=== PATIENT | female | born 1960 | race Caucasian/White ===

== ENCOUNTER 2017-11-05 16:49 | Emergency (ER) | END 2017-11-05 19:50 | disposition home or self-care (01) ==

== ENCOUNTER 2018-05-16 12:19 | Emergency (ER) | payer SELFPAY ==
[~2018-05-16] VITALS: Ht 157.5 cm; Wt 61.7 kg
[~2018-05-16 12:19] MED LIST: ACET500C5 PO; HYDR-842 PO; ONDA4TAB14 PO
[2018-05-16 12:29] VITALS: BP 120/74; PULSE 74; RESP 20; Ht 157.5 cm; Wt 61.7 kg
[2018-05-16] MEDS ORDERED: FAMOTIDINE 20 MG INJ IV STA (13:43)
[2018-05-16] MEDS ORDERED: SOD CHLORIDE 0.9% 1,000 ML IV STA (13:43)
[2018-05-16] MEDS ORDERED: ONDANSETRON 4 MG INJ IV STA (13:43)
[2018-05-16] MEDS ORDERED: LIDOCAINE/MYLANTA 40 ML BTL PO STA (13:43)
--- NOTE | 2018-05-16 13:45 | ERD ---
ER Documentation Chief Complaint Chief Complaint mid abd pain, vag, urinary pain x 5 days denies n/v/diarrhea HPI 57-year-old female, with history of chronic gastritis, presents to the emergency department, complaining of 1 week with burning epigastric pain, associated with nausea. The patient also reports 5 days with urinary symptoms including dysuria, hesitancy and polyuria. She denies fevers, no chills, no back pain. ROS All systems reviewed and are negative except as per history of present illness. Medications Home Meds Active Scripts Tamsulosin Hcl* (Flomax*) 0.4 Mg Cap.er.24h, 0.4 MG PO BID for 5 Days, #10 CAP Prov:ULISES ÁLVAREZ MD 05/16/18 Ciprofloxacin Hcl* (Ciprofloxacin Hcl*) 250 Mg Tablet, 250 MG PO BID for 3 Days, #6 TAB Prov:ULISES ÁLVAREZ MD 05/16/18 Omeprazole* (Omeprazole*) 40 Mg Capsule.dr, 40 MG PO DAILY, #30 CAP Prov:ULISES ÁLVAREZ MD 05/16/18 Ranitidine Hcl* (Zantac*) 150 Mg Tablet, 150 MG PO BID PRN for EPIGASTRIC PAIN, #30 TAB Prov:ULISES ÁLVAREZ MD 05/16/18 Hydroxyzine Hcl* (Atarax*) 25 Mg Tab, 25 MG PO Q6H PRN for ANXIETY, #10 TAB Prov:CARLOS TAO MD 11/05/17 Ondansetron (Ondansetron Odt) 4 Mg Tab.rapdis, 4 MG PO Q6H PRN for NAUSEA AND/OR VOMITING, #10 TAB Prov:SOREN NEWTON PA-C 10/20/17 Acetaminophen* (Tylophen*) 500 Mg Capsule, 1 CAP PO Q6H PRN for PAIN AND OR ELEVATED TEMP, #20 CAP Prov:SOREN NEWTON PA-C 10/20/17 Allergies Allergies: Coded Allergies: Penicillins (Verified Allergy, Unknown, 10/20/17) PMhx/Soc History of Surgery: No Anesthesia Reaction: No Hx Neurological Disorder: No Hx Respiratory Disorders: No Hx Cardiac Disorders: Yes (HTN(not on med)) Hx Psychiatric Problems: No Hx Miscellaneous Medical Probl: No Hx Alcohol Use: No Hx Substance Use: No Hx Tobacco Use: No Physical Exam Vitals Vital Signs Date Temp Pulse Resp B/P (MAP) Pulse Ox O2 O2 Flow FiO2 Time Delivery Rate 05/16/18 97.7 74 20 120/74 100 12:29 (89) Physical Exam Const: No acute distress Head: Atraumatic Eyes: Normal Conjunctiva ENT: Normal External Ears, Nose and Mouth. Neck: Full range of motion. No meningismus. Resp: Clear to auscultation bilaterally Cardio: Regular rate and rhythm, no murmurs Abd: Soft, non tender, non distended. Normal bowel sounds Skin: No petechiae or rashes Back: No midline or flank tenderness Ext: No cyanosis, or edema Neur: Awake and alert Psych: Normal Mood and Affect Result Diagram: 05/16/18 1350 05/16/18 1350 Results 24 hrs Laboratory Tests Test 05/16/18 13:50 White Blood Count 7.0 10^3/ul Red Blood Count 5.13 10^6/ul Hemoglobin 15.7 g/dl Hematocrit 47.5 % Mean Corpuscular Volume 92.6 fl Mean Corpuscular Hemoglobin 30.6 pg Mean Corpuscular Hemoglobin Concent 33.1 g/dl Red Cell Distribution Width 13.3 % Platelet Count 268 10^3/UL Mean Platelet Volume 9.9 fl Immature Granulocytes % 0.100 % Neutrophils % 46.9 % Lymphocytes % 39.7 % Monocytes % 7.4 % Eosinophils % 4.9 % Basophils % 1.0 % Nucleated Red Blood Cells % 0.0 /100WBC Immature Granulocytes # 0.010 10^3/ul Neutrophils # 3.3 10^3/ul Lymphocytes # 2.8 10^3/ul Monocytes # 0.5 10^3/ul Eosinophils # 0.3 10^3/ul Basophils # 0.1 10^3/ul Nucleated Red Blood Cells # 0.0 10^3/ul Urine Color YELLOW Urine Clarity SLIGHTLY CLOUDY Urine pH 5.0 Urine Specific [place] 1.019 Urine Ketones NEGATIVE mg/dL Urine Nitrite NEGATIVE mg/dL Urine Bilirubin NEGATIVE mg/dL Urine Urobilinogen NEGATIVE mg/dL Urine Leukocyte Esterase NEGATIVE Ania/ul Urine Microscopic RBC 1 /HPF Urine Microscopic WBC 1 /HPF Urine Squamous Epithelial Cells FEW /HPF Urine Hemoglobin NEGATIVE mg/dL Urine Glucose NEGATIVE mg/dL Urine Total Protein NEGATIVE mg/dl Sodium Level 144 mmol/L Potassium Level 4.4 mmol/L Chloride Level 106 mmol/L Carbon Dioxide Level 28 mmol/L Anion Gap 10 Blood Urea Nitrogen 20 mg/dl Creatinine 0.57 mg/dl Est Glomerular Filtrat Rate mL/min > 60 mL/min Glucose Level 101 mg/dl Calcium Level 9.8 mg/dl Total Bilirubin 0.5 mg/dl Direct Bilirubin 0.00 mg/dl Indirect Bilirubin 0.5 mg/dl Aspartate Amino Transf (AST/SGOT) 45 IU/L Alanine Aminotransferase (ALT/SGPT) 76 IU/L Alkaline Phosphatase 107 IU/L Total Protein 7.8 g/dl Albumin 4.7 g/dl Globulin 3.10 g/dl Albumin/Globulin Ratio 1.51 Lipase 118 U/L Current Medications Medications Dose Sig/Rosa Maria Start Time Status Last (Trade) Ordered Route PRN Stop Time Admin Dose Reason Admin Sodium 1,000 ml @ Q1H STAT 05/16/18 DC 05/16/18 Chloride 1,000 mls/hr IV 13:43 05/16/18 13:55 14:42 Ondansetron 4 mg ONCE STAT 05/16/18 DC 05/16/18 HCl (Zofran IV 13:43 05/16/18 13:55 Inj) 13:47 Famotidine 20 mg ONCE STAT 05/16/18 DC 05/16/18 (Pepcid Iv) IV 13:43 05/16/18 13:55 13:47 40 ml ONCE STAT 05/16/18 DC 05/16/18 Miscellaneous PO 13:43 05/16/18 13:55 Medication 13:47 (Gi Cocktail (2)) EKG read by me: Rate/Rhythm: Regular rate and rhythm at a rate of 60 Intervals: Normal No acute ST changes. No T wave inversion Impression: No evidence of acute ischemia or arrhythmia Procedures/MDM Vital signs stable. Differential diagnosis include but not limited to: Gas tritis, gastroenteritis, cholelithiasis, cholecystitis, kidney stones, irritable bowel syndrome, inflammatory bowel syndrome, malabsorption syndrome, food intolerance, medication side effect, pancreatitis, diverticulitis, bowel obstruction. Physical examination and clinical presentation consistent most likely with acute gastritis and acute cystitis, no suspicion for acute abdomen. During the ED course the patient remained stable, no new complaints. The patient received treatment with IV fluids and IV medications presenting overall improvement of the symptoms. Results and clinical impression discussed with the patient who agrees with management. The patient is stable to be treated outpatient and will be discharged home with a Rx for, some side effects of prescribed medications (headache, rash, nausea, vomiting, diarrhea, drowsiness, habituation, bleeding, hypertension, interactions with other medications) were reviewed. Follow up with the primary care provider in the next 48h is recommended. If symptoms persist, worsen or new symptoms develop, then patient should return to the ED immediately. Instructions explained and given directly by me to the patient with acknowledgment and demonstrated understanding. Disclaimer: Inadvertent spelling and grammatical errors are likely due to EHR/dictation software use and do not reflect on the overall quality of patient care. Also, please note that the electronic time recorded on this note does not necessarily reflect the actual time of the patient encounter. Departure Diagnosis: Primary Impression: GERD (gastroesophageal reflux disease) Additional Impression: Cystitis Condition: Stable Additional Instructions: Muchas bubba por [facility] para johnson servicio. Esperamos que en johnson visita a la zoila de emergencia johnson problema medico haya sido solucionado y que se sienta mucho mejor. Para estar seguros que johnson mejoria sigue en proceso, le pedimos el favor de hacer arslan harlan de seguimiento medico con johnson doctor primario en los proximos 2-4 morales. Lleve con usted estos documentos y las medicinas recetadas. Si woody sintomas empeoran, NO SE ESPERE, por favor regrese a zoila de emergencia INMEDIATAMENTE. En alison que usted no tenga un mdico de atencin primaria: Llame al mdico o clnica comunitaria de referencia que aparece abajo mari las horas de consultorio para hacer arslan harlan para que le vean. CLINICAS: [facility] [phone] [address] [facility] 394 [phone] [address] [facility] 656 [phone] [address] [facility] [phone] [address] [place] [id number] [phone] [facility]. [phone] ULISES RG MD May 16, 2018 13:45
[2018-05-16] MEDS ORDERED: OMEP40CA6 PO (14:33)
[2018-05-16] MEDS ORDERED: TAMS-14 PO (14:33)
[2018-05-16] MEDS ORDERED: CIPR-193 PO (14:33)
[2018-05-16] MEDS ORDERED: RANI150T35 PO (14:33)
== END 2018-05-16 14:47 | disposition home or self-care (01) ==
LOC: FTE 12:19
DX: K21.9 Gastro-esophageal reflux disease without esophagitis (principal); I10 Essential (primary) hypertension; N30.90 Cystitis, unspecified without hematuria
CPT/HCPCS: 36415; 80053; 81001; 83690; 85025; 96361; 96374; 96375; 99284; J2405; J7030; 81003

== ENCOUNTER 2018-06-13 22:29 | Emergency (ER) | payer SELFPAY ==
[~2018-06-13] VITALS: Ht 160 cm; Wt 63.0 kg
[~2018-06-13 22:29] MED LIST changes: +CIPR-193 PO; +OMEP40CA6 PO; +RANI150T35 PO; +TAMS-14 PO
[2018-06-13 22:32] VITALS: Ht 160 cm; Wt 63.0 kg
[2018-06-14] MEDS ORDERED: KETOROLAC 15 MG INJ IM STA (01:12)
[2018-06-14] MEDS ORDERED: LORAZEPAM 0.5 MG TAB PO ONE (01:30)
[2018-06-14] MEDS ORDERED: LORA-441 PO (02:01)
[2018-06-14] MEDS ORDERED: ACET-141 PO (02:01)
[2018-06-14] MEDS ORDERED: IBUP-1542 PO (02:01)
--- NOTE | 2018-06-14 02:04 | ERD ---
ER Documentation Chief Complaint Chief Complaint VITALE and neck pain x 3 days; denies n/v/injury/cough HPI 57-year-old female presents for headache and neck pain x3 days. She states that the headache is in the posterior part of her head, rated 8 out of 10, described as sharp, nonradiating. There is also associated neck pain. She also feels that she is anxious. She denies significant past medical history. She has had prior similar headaches in the past. She denies fevers or chills. Denies nausea vomiting or diarrhea. Denies chest pain or shortness of breath. No other modifying factors noted. No treatments tried at home. ROS All systems reviewed and are negative except as per history of present illness. Medications Home Meds Active Scripts Lorazepam* (Ativan*) 0.5 Mg Tablet, 0.5 MG PO Q8H PRN for ANXIETY, #10 TAB Prov:CARLOS FALL DO 06/14/18 Acetaminophen* (Acetaminophen*) 500 MG Extra Strength Tablet, 500 MG PO Q4H PRN for PAIN AND OR ELEVATED TEMP, #30 TAB Prov:CARLOS FALL DO 06/14/18 Ibuprofen* (Motrin*) 600 Mg Tab, 600 MG PO Q6H PRN for PAIN AND OR ELEVATED TEMP, #30 TAB Prov:CARLOS FALL DO 06/14/18 Tamsulosin Hcl* (Flomax*) 0.4 Mg Cap.er.24h, 0.4 MG PO BID for 5 Days, #10 CAP Prov:ULISES ÁLVAREZ MD 05/16/18 Ciprofloxacin Hcl* (Ciprofloxacin Hcl*) 250 Mg Tablet, 250 MG PO BID for 3 Days, #6 TAB Prov:ULISES ÁLVAREZ MD 05/16/18 Omeprazole* (Omeprazole*) 40 Mg Capsule.dr, 40 MG PO DAILY, #30 CAP Prov:ULISES ÁLVAREZ MD 05/16/18 Ranitidine Hcl* (Zantac*) 150 Mg Tablet, 150 MG PO BID PRN for EPIGASTRIC PAIN, #30 TAB Prov:ULISES ÁLVAREZ MD 05/16/18 Hydroxyzine Hcl* (Atarax*) 25 Mg Tab, 25 MG PO Q6H PRN for ANXIETY, #10 TAB Prov:CARLOS TAO MD 11/05/17 Ondansetron (Ondansetron Odt) 4 Mg Tab.rapdis, 4 MG PO Q6H PRN for NAUSEA AND/OR VOMITING, #10 TAB Prov:SOREN NEWTON PA-C 10/20/17 Acetaminophen* (Tylophen*) 500 Mg Capsule, 1 CAP PO Q6H PRN for PAIN AND OR ELEVATED TEMP, #20 CAP Prov:SOREN NEWTON PA-C 10/20/17 Allergies Allergies: Coded Allergies: Penicillins (Verified Allergy, Unknown, 10/20/17) PMhx/Soc History of Surgery: No Anesthesia Reaction: No Hx Neurological Disorder: No Hx Respiratory Disorders: No Hx Cardiac Disorders: Yes (HTN(not on med)) Hx Psychiatric Problems: No Hx Miscellaneous Medical Probl: Yes (GASTRIC ULCERS) Hx Alcohol Use: No Hx Substance Use: No Hx Tobacco Use: No Smoking Status: Never smoker FmHx Family History: No coronary disease Physical Exam Vitals Vital Signs Date Temp Pulse Resp B/P (MAP) Pulse Ox O2 O2 Flow FiO2 Time Delivery Rate 06/13/18 97.3 87 20 144/67 99 22:32 (92) Physical Exam Const: No acute distress Head: Atraumatic, no temporal area tenderness to palpation Eyes: Normal Conjunctiva, pupils equal, round, reactive to light bilaterally ENT: Normal External Ears, bilateral tympanic membrane intact without erythema or bulging noted, Nose and Mouth examination normal. No tonsillar swelling or exudate noted Neck: Full range of motion. No meningismus, no bruits noted Resp: Clear to auscultation bilaterally Cardio: Regular rate and rhythm, no murmurs, bilateral radial and dorsalis pedis pulses intact Skin: No petechiae or rashes Ext: No cyanosis, or edema, 5 out of 5 muscular bilateral upper and lower ex tremities Neur: Awake and alert, bilateral upper and lower extremity sensation intact Psych: Normal Mood and Affect Results 24 hrs Current Medications Medications Dose Sig/Rosa Maria Start Time Status Last (Trade) Ordered Route PRN Stop Time Admin Dose Reason Admin Ketorolac 15 mg ONCE STAT 06/14/18 DC 06/14/18 Tromethamine IM 01:12 06/14/18 01:27 (Toradol) 01:14 Lorazepam 0.5 mg ONCE ONCE 06/14/18 DC 06/14/18 (Ativan) PO 01:30 06/14/18 01:26 01:31 Procedures/MDM Medical Decision Making: Differential diagnosis includes but not limited to primary headache, subarachnoid hemorrhage, meningitis, temporal arteritis, glaucoma, hypertension, cerebral ischemia, carotid or vertebral arterial dissection, brain tumor. Patient appeared well on physical examination, nontoxic appearing. No history of fever. There is low suspicion for meningitis. Given no temporal area tenderness to palpation, low suspicion for temporal arteritis. Patient has no vision changes and pupils are reactive bilaterally, low suspicion for glaucoma. There is also no focal neurologic deficits to suggest a brain tumor. Patient has normal sensation and muscle strength, low suspicion for cerebral ischemia. Given headache is similar to prior headaches, patient possibly has a primary headache. Patient is also having some anxiety symptoms while in the ER. In the ER patient given Toradol and Ativan Symptoms improved with treatment. Patient given prescription for supportive medication(s) as well as Ativan low- dose short course. Patient advised to follow up with PCP in 1-2 days. Patient advised to return to ED for new or worsening symptoms. Patient stable on discharge from the ED. Disclaimer: Inadvertent spelling and grammatical errors are likely due to EHR/dictation software use and do not reflect on the overall quality of patient care. Also, please note that the electronic time recorded on this note does not necessarily reflect the actual time of the patient encounter. Departure Diagnosis: Primary Impression: Headache Headache type: unspecified Headache chronicity pattern: unspecified pattern Intractability: not intractable Qualified Codes: R51 - Headache Additional Impression: Anxiety Condition: Fair Patient Instructions: Self-Care for Headaches, Anxiety Reaction Referrals: [facility] YOU HAVE RECEIVED A MEDICAL SCREENING EXAM AND THE RESULTS INDICATE THAT YOU DO NOT HAVE A CONDITION THAT REQUIRES URGENT TREATMENT IN THE EMERGENCY DEPARTMENT. FURTHER EVALUATION AND TREATMENT OF YOUR CONDITION CAN WAIT UNTIL YOU ARE SEEN IN YOUR DOCTORS OFFICE WITHIN THE NEXT 1-2 DAYS. IT IS YOUR RESPONSIBILITY TO MAKE AN APPOINTMENT FOR FOLOW-UP CARE. IF YOU HAVE A PRIMARY DOCTOR --you should call your primary doctor and schedule an appointment IF YOU DO NOT HAVE A PRIMARY DOCTOR YOU CAN CALL OUR PHYSICIAN REFERRAL HOTLINE AT IF YOU CAN NOT AFFORD TO SEE A PHYSICIAN YOU CAN CHOSE FROM THE FOLLOWING [facility] [address] [facility] [address] [facility] [address] [facility] [address] [facility]. [facility] [address] [facility]. [facility] [address] Additional Instructions: Llame al doctor MAANA y torsten arslan ILANA PARA DENTRO DE 1-2 HERNANDEZ.Dgale a la secretaria que nosotros le instruimos hacer esta ilana.Avise o llame si johnson condicin se empeora antes de la ilana. Regresa aqui si peor o no mejor. CARLOS FALL DO June 14, 2018 02:04
[2018-06-14 02:21] VITALS: BP 135/62; PULSE 81; RESP 17
== END 2018-06-14 02:21 | disposition home or self-care (01) ==
LOC: FTE 22:29
DX: R51 Headache (principal); F41.9 Anxiety disorder, unspecified; I10 Essential (primary) hypertension
CPT/HCPCS: 96372; 99284; J1885

== ENCOUNTER 2018-07-14 22:41 | Emergency (ER) | payer SELFPAY ==
[~2018-07-14] VITALS: Ht 152.4 cm; Wt 63.2 kg
[~2018-07-14 22:41] MED LIST changes: +ACET-141 PO; +IBUP-1542 PO; +LORA-441 PO
[2018-07-14 23:01] VITALS: Ht 152.4 cm; Wt 63.2 kg
[2018-07-15] MEDS ORDERED: SOD CHLORIDE 0.9% 500 ML IV STA (02:38)
[2018-07-15] MEDS ORDERED: ONDANSETRON 4 MG INJ IV STA (02:38)
[2018-07-15] MEDS ORDERED: morphine 4 MG/ML VIAL IV STA (02:38)
--- NOTE | 2018-07-15 04:21 | ERD ---
ER Documentation Chief Complaint Chief Complaint Upper abd since this morning, c/o VITALE and neck pain HPI This very pleasant 57 female with abdominal pain this morning. She has a history of gastric ulcers his pain is mild to moderate intensity no exacerbating factors. Denies fevers or chills. Denies any other current complaints. Mild associated nausea but no vomiting. No fevers or chills. ROS All systems reviewed and are negative except as per history of present illness. Medications Home Meds Active Scripts Lorazepam* (Ativan*) 0.5 Mg Tablet, 0.5 MG PO Q8H PRN for ANXIETY, #10 TAB Prov:CARLOS FALL DO 06/14/18 Ibuprofen* (Motrin*) 600 Mg Tab, 600 MG PO Q6H PRN for PAIN AND OR ELEVATED TEMP, #30 TAB Prov:CARLOS FALL DO 06/14/18 Omeprazole* (Omeprazole*) 40 Mg Capsule.dr, 40 MG PO DAILY, #30 CAP Prov:ULISES ÁLVAREZ MD 05/16/18 Ondansetron (Ondansetron Odt) 4 Mg Tab.rapdis, 4 MG PO Q6H PRN for NAUSEA AND/OR VOMITING, #10 TAB Prov:SOREN NEWTON PA-C 10/20/17 Discontinued Scripts Acetaminophen* (Acetaminophen*) 500 MG Extra Strength Tablet, 500 MG PO Q4H PRN for PAIN AND OR ELEVATED TEMP, #30 TAB Prov:CARLOS FALL DO 06/14/18 Tamsulosin Hcl* (Flomax*) 0.4 Mg Cap.er.24h, 0.4 MG PO BID for 5 Days, #10 CAP Prov:ULISES ÁLVAREZ MD 05/16/18 Ciprofloxacin Hcl* (Ciprofloxacin Hcl*) 250 Mg Tablet, 250 MG PO BID for 3 Days, #6 TAB Prov:ULISES ÁLVAREZ MD 05/16/18 Ranitidine Hcl* (Zantac*) 150 Mg Tablet, 150 MG PO BID PRN for EPIGASTRIC PAIN, #30 TAB Prov:ULISES ÁLVAREZ MD 05/16/18 Hydroxyzine Hcl* (Atarax*) 25 Mg Tab, 25 MG PO Q6H PRN for ANXIETY, #10 TAB Prov:CARLOS TAO MD 11/05/17 Acetaminophen* (Tylophen*) 500 Mg Capsule, 1 CAP PO Q6H PRN for PAIN AND OR ELEVATED TEMP, #20 CAP Prov:SOREN NEWTON PA-C 10/20/17 Allergies Allergies: Coded Allergies: Penicillins (Unverified Allergy, Unknown, 07/15/18) PMhx/Soc Medical and Surgical Hx: pt denies Surgical Hx History of Surgery: No Anesthesia Reaction: No Hx Neurological Disorder: No Hx Respiratory Disorders: No Hx Cardiac Disorders: No Hx Psychiatric Problems: No Hx Miscellaneous Medical Probl: Yes (GASTRIC ULCER) Hx Alcohol Use: No Hx Substance Use: No Hx Tobacco Use: No Smoking Status: Never smoker Physical Exam Vitals Vital Signs Date Temp Pulse Resp B/P (MAP) Pulse Ox O2 O2 Flow FiO2 Time Delivery Rate 07/15/18 97.3 65 18 98/65 (76) 100 Room Air 03:10 07/14/18 96.2 78 16 144/88 96 23:01 (106) Physical Exam Const: No acute distress Head: Atraumatic Eyes: Normal Conjunctiva ENT: Normal External Ears, Nose and Mouth. Neck: Full range of motion. No meningismus. Resp: Clear to auscultation bilaterally Cardio: Regular rate and rhythm, no murmurs Abd: Soft, non tender, non distended. Normal bowel sounds Skin: No petechiae or rashes Back: No midline or flank tenderness Ext: No cyanosis, or edema Neur: Awake and alert Psych: Normal Mood and Affect Result Diagram: 07/15/18 0259 07/15/18 0259 Results 24 hrs Laboratory Tests Test 07/15/18 02:59 07/15/18 03:17 White Blood Count 7.9 10^3/ul Red Blood Count 4.75 10^6/ul Hemoglobin 14.5 g/dl Hematocrit 44.3 % Mean Corpuscular Volume 93.3 fl Mean Corpuscular Hemoglobin 30.5 pg Mean Corpuscular Hemoglobin Concent 32.7 g/dl Red Cell Distribution Width 13.2 % Platelet Count 259 10^3/UL Mean Platelet Volume 10.0 fl Immature Granulocytes % 0.100 % Neutrophils % 38.9 % Lymphocytes % 45.7 % Monocytes % 7.5 % Eosinophils % 6.9 % Basophils % 0.9 % Nucleated Red Blood Cells % 0.0 /100WBC Immature Granulocytes # 0.010 10^3/ul Neutrophils # 3.1 10^3/ul Lymphocytes # 3.6 10^3/ul Monocytes # 0.6 10^3/ul Eosinophils # 0.5 10^3/ul Basophils # 0.1 10^3/ul Nucleated Red Blood Cells # 0.0 10^3/ul Sodium Level 142 mmol/L Potassium Level 3.9 mmol/L Chloride Level 107 mmol/L Carbon Dioxide Level 29 mmol/L Anion Gap 6 Blood Urea Nitrogen 24 mg/dl Creatinine 0.67 mg/dl Est Glomerular Filtrat Rate mL/min > 60 mL/min Glucose Level 110 mg/dl Calcium Level 9.2 mg/dl Total Bilirubin 0.3 mg/dl Direct Bilirubin 0.00 mg/dl Indirect Bilirubin 0.3 mg/dl Aspartate Amino Transf (AST/SGOT) 44 IU/L Alanine Aminotransferase (ALT/SGPT) 85 IU/L Alkaline Phosphatase 105 IU/L Troponin I < 0.012 ng/ml Total Protein 7.3 g/dl Albumin 4.3 g/dl Globulin 3.00 g/dl Albumin/Globulin Ratio 1.43 Lipase 78 U/L Urine Color YELLOW Urine Clarity CLEAR Urine pH 6.0 Urine Specific [place] 1.020 Urine Ketones NEGATIVE mg/dL Urine Nitrite NEGATIVE mg/dL Urine Bilirubin NEGATIVE mg/dL Urine Urobilinogen NEGATIVE mg/dL Urine Leukocyte Esterase NEGATIVE Ania/ul Urine Microscopic RBC 2 /HPF Urine Microscopic WBC 1 /HPF Urine Squamous Epithelial Cells FEW /HPF Urine Hemoglobin 1+ mg/dL Urine Glucose NEGATIVE mg/dL Urine Total Protein NEGATIVE mg/dl Current Medications Medications Dose Sig/Rosa Maria Start Time Status Last (Trade) Ordered Route PRN Stop Time Admin Dose Reason Admin Sodium 500 ml @ Q1H STAT 07/15/18 DC 07/15/18 Chloride 500 mls/hr IV 02:38 07/15/18 03:33 03:37 Morphine 4 mg ONCE STAT 07/15/18 DC 07/15/18 Sulfate IV 02:38 07/15/18 03:25 (morphine) 02:40 Ondansetron 4 mg ONCE STAT 07/15/18 DC 07/15/18 HCl (Zofran IV 02:38 07/15/18 03:25 Inj) 02:40 Procedures/MDM EKG: Rate/Rhythm: [Normal Sinus Rhythm] QRS, ST, T-waves: [No changes consistent w/ acute ischemia] Impression: [No evidence of ischemia or arrhythmia] Chest X-ray 1V Interpreted by me: Soft Tissue: No acute abnormalities Bones: No acute abnormalities Mediastinum/Cardiac Silhouette/Lungs: [No acute abnormalities] Medical decision making: This very pleasant patient comes in essentially for abdominal pain likely secondary to gastric ulcer. Pain is now resolved. Patient stable for trial of outpatient management. Will be discharged home pain medication. Patient's gastrointestinal symptoms have stabilized while in the department. No evidence of severe dehydration, sepsis, or surgical abdomen. Extensive discussion with family and patient that occult disease cannot be ruled out. 8 hour recheck for repeat abdominal exam is planned. Departure Diagnosis: Primary Impression: Abdominal pain Abdominal location: unspecified location Qualified Codes: R10.9 - Unspecified abdominal pain Condition: Stable BERE JOHNSON Jul 15, 2018 04:21
[2018-07-15] MEDS ORDERED: TRAM50TA2 PO (04:39)
[2018-07-15] MEDS ORDERED: ONDA4TAB14 PO (04:39)
[2018-07-15 05:05] VITALS: BP 131/79; PULSE 71; RESP 20
[2018-07-15] MEDS ORDERED: KETOROLAC 30 MG INJ IV STA (05:09)
[2018-07-15] MEDS ORDERED: LIDOCAINE/MYLANTA 40 ML BTL PO ONE (05:30)
== END 2018-07-15 05:39 | disposition home or self-care (01) ==
LOC: E/R 22:41
DX: R10.10 Upper abdominal pain, unspecified (principal); R11.0 Nausea
CPT/HCPCS: 36415; 71045; 74176; 80053; 81001; 83690; 84484; 85025; 93005; 96374; 96375; 99285; J1885; J2270; J2405; J7040

== ENCOUNTER 2018-08-11 15:44 | Emergency (ER) | payer SELFPAY ==
[~2018-08-11] VITALS: Ht 157.5 cm; Wt 63.2 kg
[~2018-08-11 15:44] MED LIST changes: -ACET-141 PO; -ACET500C5 PO; -CIPR-193 PO; -HYDR-842 PO; -RANI150T35 PO; -TAMS-14 PO; +TRAM50TA2 PO
[2018-08-11 15:49] VITALS: Ht 157.5 cm; Wt 63.2 kg
[2018-08-11] MEDS ORDERED: KETOROLAC 30 MG INJ IV STA (16:50)
--- NOTE | 2018-08-11 16:54 | ERD ---
ER Documentation Chief Complaint Chief Complaint VITALE w/ bilateral ear pain/stuffiness x1 month HPI This is a 57 years old female presenting for bilateral ear pain, stuffiness, headache, sinus pressure, cough without sputum production X 1 month. Patient reports headache is across her entire head radiating to her neck. Admits to taking [id number] Tylenol and Aleve without resolution of symptoms. ROS All systems reviewed and are negative except as per history of present illness. Medications Home Meds Active Scripts Xtwglknjhfg-R-Xmywjbvupk Hb* (Guaifenesin* DM Syrup) 120 Ml Syrup, 10 ML PO Q4H PRN for COUGH for 7 Days, ML Prov:JOCELYN RENTERIA PA-C 08/11/18 Methylprednisolone* (Medrol* DOSE PACK) 4 Mg/Dose-Pack Tab.ds.pk, 4 MG PO . DIRECTED for 5 Days, PACKET Prov:JOCELYN RENTERIA PA-C 08/11/18 Cefdinir (Cefdinir) 300 Mg Capsule, 300 MG PO BID for 10 Days, #20 CAP Prov:JOCELYN RENTERIA PA-C 08/11/18 Ondansetron (Ondansetron Odt) 4 Mg Tab.rapdis, 4 MG PO Q6H PRN for NAUSEA AND/OR VOMITING, #10 TAB Prov:BERE JOHNSON 07/15/18 Tramadol HCl (Tramadol HCl) 50 Mg Tablet, 50 MG PO Q4 PRN for PAIN, #20 TAB Prov:BERE JOHNSON 07/15/18 Lorazepam* (Ativan*) 0.5 Mg Tablet, 0.5 MG PO Q8H PRN for ANXIETY, #10 TAB Prov:CARLOS FALL DO 06/14/18 Ibuprofen* (Motrin*) 600 Mg Tab, 600 MG PO Q6H PRN for PAIN AND OR ELEVATED TEMP, #30 TAB Prov:CARLOS FALL DO 06/14/18 Omeprazole* (Omeprazole*) 40 Mg Capsule., 40 MG PO DAILY, #30 CAP Prov:ULISES ÁLVAREZ MD 05/16/18 Ondansetron (Ondansetron Odt) 4 Mg Tab.rapdis, 4 MG PO Q6H PRN for NAUSEA AND/OR VOMITING, #10 TAB Prov:SOREN NEWTON PA-C 10/20/17 Allergies Allergies: Coded Allergies: Penicillins (Unverified Allergy, Unknown, 07/15/18) PMhx/Soc History of Surgery: No Anesthesia Reaction: No Hx Neurological Disorder: No Hx Respiratory Disorders: No Hx Cardiac Disorders: No Hx Psychiatric Problems: No Hx Miscellaneous Medical Probl: Yes (GASTRIC ULCER) Hx Alcohol Use: No Hx Substance Use: No Hx Tobacco Use: No Physical Exam Vitals Vital Signs Date Temp Pulse Resp B/P (MAP) Pulse Ox O2 O2 Flow FiO2 Time Delivery Rate 08/11/18 98.4 101 18 127/81 98 15:49 (96) Physical Exam Const: Patient appears to be in some discomfort, crying uncontrollably about her headache and sinus pressure. Head: Atraumatic. Frontal, left ethmoidal and maxillary tenderness. Eyes: Normal Conjunctiva ENT: Normal External Ears, Nose and Mouth. Bilateral tympanic membrane erythematous without discharge or perforation noted. Neck: Full range of motion. No meningismus. Resp: Bilateral lower lobe rales with diminished breath sounds. Patient was crying during entire exam; adventitious sound could be due to crying nose. Cardio: Regular rate and rhythm, no murmurs Neur: Awake and alert Psych: Normal Mood and Affect Results 24 hrs Current Medications Medications Dose Sig/Rosa Maria Start Time Status Last (Trade) Ordered Route PRN Stop Time Admin Dose Reason Admin 125 mg ONCE ONCE 08/11/18 DC 08/11/18 Methylprednis IV 17:00 08/11/18 17:03 olone Sodium 17:01 Succinate (Solu-Medrol) Ketorolac 30 mg ONCE STAT 08/11/18 DC 08/11/18 Tromethamine IV 16:50 08/11/18 17:03 (Toradol) 16:54 Procedures/MDM Patient was seen and evaluated for severe sinus pressure, bilateral ear pain, cough, and headache. Patient's clinical presentation mostly correlates with sinus infection and otitis media, bilaterally. Chest x-ray revealed inflammation (Formal read not available, preliminary read with Dr. Hodge shows no obvious infiltrates). Patient was given Solu-Medrol 125 mg IV and Toradol 30 mg IV with resolution of symptoms. Patient is stable and ready for discharge. Follow-up with primary care provider. Patient will be discharged with Cefdinir (due to penicillin allergy) for 10 days, medrol dosepak, and guaifenesin. Departure Diagnosis: Primary Impression: Otitis media Otitis media type: suppurative Chronicity: acute Laterality: bilateral Recurrence: non-recurrent Spontaneous tympanic membrane rupture: without spontaneous rupture Qualified Codes: H66.003 - Acute suppurative otitis media without spontaneous rupture of ear drum, bilateral Additional Impression: Sinusitis Sinusitis location: unspecified location Chronicity: unspecified Qualified Codes: J32.9 - Chronic sinusitis, unspecified Condition: Stable Patient Instructions: Acute Sinusitis, Otitis Media, Abx Tx (Adult) Referrals: [facility] Additional Instructions: Paciente aconseja volver a Departamento de urgencias inmediatamente para sntomas nuevos o que empeoran . Paciente aconseja posteriores con el PCP en 2-3 bacon . Paciente verbaliza la comprehensin y est de acuerdo con el tratamiento y el curso de accin. Si el paciente no tiene ninguna de atencin primaria pueden seguir con [facility] [address] [place] [address] o [facility] + [address] [address] JOCELYN RENTERIA PA-C Aug 11, 2018 16:54
[2018-08-11] MEDS ORDERED: METHYLPREDNISOLONE 125 MG INJ IV ONE (17:00)
[2018-08-11] MEDS ORDERED: MED4DP PO (19:01)
[2018-08-11] MEDS ORDERED: CEFD300C2 PO (19:01)
[2018-08-11] MEDS ORDERED: GUAI120S25 PO (19:02)
[2018-08-11] MEDS ORDERED: IBUP-1542 PO (19:24)
[2018-08-11 19:28] VITALS: BP 133/66; PULSE 96; RESP 18
== END 2018-08-11 19:36 | disposition home or self-care (01) ==
LOC: FTE 15:44
DX: H66.003 Acute suppurative otitis media without spontaneous rupture of ear drum, bilateral (principal); J32.9 Chronic sinusitis, unspecified; R05 Cough
CPT/HCPCS: 71045; 96374; 96375; 99284; J1885; J2930

== ENCOUNTER 2018-08-13 16:32 | Emergency (ER) | payer SELFPAY ==
[~2018-08-13] VITALS: Ht 157.5 cm; Wt 79.0 kg
[~2018-08-13 16:32] MED LIST changes: +CEFD300C2 PO; +GUAI120S25 PO; +MED4DP PO
[2018-08-13 16:35] VITALS: BP 125/63; PULSE 93; RESP 18; Ht 157.5 cm; Wt 79.0 kg
[2018-08-13] MEDS ORDERED: SOD CHLORIDE 0.9% 1,000 ML IV STA (17:02)
[2018-08-13] MEDS ORDERED: PROCHLORPERAZINE 10 MG INJ IV STA (17:02)
[2018-08-13] MEDS ORDERED: ONDANSETRON 4 MG INJ IV STA (17:02)
[2018-08-13] MEDS ORDERED: KETOROLAC 30 MG INJ IV STA (17:02)
[2018-08-13] MEDS ORDERED: LORAZEPAM 2 MG INJ IV ONE (17:30)
[2018-08-13] MEDS ORDERED: HYDR-843 PO (18:10)
--- NOTE | 2018-08-13 18:50 | ERD ---
ER Documentation Chief Complaint Chief Complaint VITALE X 2 WEEKS HPI This is a 57-year-old female who presents to the ED for the second time in 1 week with complaints of a headache. Patient states she has been having an ongoing headache for the past 3 weeks. Symptoms have been progressively worse today. Pain is localized to her occipital scalp, pounding in nature and radiates towards her frontal scalp, sinuses and bilateral ears. She is com plaining of bilateral ear pressure as well. Patient states she had a mechanical slip and fall 6 months ago, striking the back of her head and states that today's symptoms are similar. She denies any new trauma or injury. No numbness, tingling or focal weakness. No changes in vision. She was seen on August 11, 2018 and given a prescription for Prednisone and Cefdinir for acute nehemiah tis media and sinusitis. She states these medications have not been helping and is requesting for medications to help her sleep. ROS All systems reviewed and are negative except as per history of present illness. Medications Home Meds Active Scripts Hydroxyzine Hcl* (Hydroxyzine Hcl*) 25 Mg Tablet, 25 MG PO QHS for anxiety, #10 TAB Prov:WILLY BRADY PA-C 08/13/18 Ibuprofen* (Motrin*) 600 Mg Tab, 600 MG PO Q6, #15 TAB Prov:CAYLA JONAS MD 08/11/18 Dtuilvakyme-U-Atgbopzhgf Hb* (Guaifenesin* DM Syrup) 120 Ml Syrup, 10 ML PO Q4H PRN for COUGH for 7 Days, ML Prov:JOCELYN RENTERIA PA-C 08/11/18 Methylprednisolone* (Medrol* DOSE PACK) 4 Mg/Dose-Pack Tab.ds.pk, 4 MG PO . DIRECTED for 5 Days, PACKET Prov:JOCELYN RENTERIA PA-C 08/11/18 Cefdinir (Cefdinir) 300 Mg Capsule, 300 MG PO BID for 10 Days, #20 CAP Prov:JOCELYN RENTERIA PA-C 08/11/18 Ondansetron (Ondansetron Odt) 4 Mg Tab.rapdis, 4 MG PO Q6H PRN for NAUSEA AND/OR VOMITING, #10 TAB Prov:BERE JOHNSON 07/15/18 Tramadol HCl (Tramadol HCl) 50 Mg Tablet, 50 MG PO Q4 PRN for PAIN, #20 TAB Prov:BERE JOHNSONRoxi 07/15/18 Lorazepam* (Ativan*) 0.5 Mg Tablet, 0.5 MG PO Q8H PRN for ANXIETY, #10 TAB Prov:CARLOS FALL DO 06/14/18 Ibuprofen* (Motrin*) 600 Mg Tab, 600 MG PO Q6H PRN for PAIN AND OR ELEVATED TEMP, #30 TAB Prov:CARLOS FALL DO 06/14/18 Omeprazole* (Omeprazole*) 40 Mg Capsule.dr, 40 MG PO DAILY, #30 CAP Prov:ULISES ÁLVAREZ MD 05/16/18 Ondansetron (Ondansetron Odt) 4 Mg Tab.rapdis, 4 MG PO Q6H PRN for NAUSEA AND/OR VOMITING, #10 TAB Prov:SOREN NEWTON PA-C 10/20/17 Allergies Allergies: Coded Allergies: Penicillins (Unverified Allergy, Unknown, 07/15/18) PMhx/Soc History of Surgery: No Anesthesia Reaction: No Hx Neurological Disorder: No Hx Respiratory Disorders: No Hx Cardiac Disorders: No Hx Psychiatric Problems: No Hx Miscellaneous Medical Probl: Yes (GASTRIC ULCER) Hx Alcohol Use: No Hx Substance Use: No Hx Tobacco Use: No Smoking Status: Never smoker Physical Exam Vitals Vital Signs Date Temp Pulse Resp B/P (MAP) Pulse Ox O2 O2 Flow FiO2 Time Delivery Rate 08/13/18 98.1 93 18 125/63 99 16:35 (83) Physical Exam Const: + Very anxious appearing, tearful Head: Atraumatic Eyes: Normal Conjunctiva ENT: Normal External Ears, Nose and Mouth. + Tenderness to percussion along the maxillary and frontal sinuses. Posterior OP normal. Bilateral TMs nonerythematous, nonbulging. Neck: Full range of motion. No meningismus. Resp: Clear to auscultation bilaterally Cardio: Regular rate and rhythm, no murmurs Abd: Soft, non tender, non distended. Normal bowel sounds Skin: No petechiae or rashes Back: No midline or flank tenderness Ext: No cyanosis, or edema Neuro: M/S: Alert and oriented Face: EOMI, face and pharynx with normal sensation and function Motor: Normal strength throughout Sensation: Normal sensation throughout Speech: Normal Cerebel: Normal coordination Normal gait Psych: Normal Mood and Affect Results 24 hrs Current Medications Medications Dose Sig/Rosa Maria Start Time Status Last (Trade) Ordered Route PRN Stop Time Admin Dose Reason Admin Sodium 1,000 ml @ Q1H STAT 08/13/18 DC 08/13/18 Chloride 1,000 mls/hr IV 17:02 08/13/18 17:26 18:01 10 mg ONCE STAT 08/13/18 DC 08/13/18 Prochlorperaz IV 17:02 08/13/18 17:36 ine 17:06 (Compazine Inj) Ondansetron 4 mg ONCE STAT 08/13/18 DC 08/13/18 HCl (Zofran IV 17:02 08/13/18 17:26 Inj) 17:06 Ketorolac 15 mg ONCE STAT 08/13/18 DC 08/13/18 Tromethamine IV 17:02 08/13/18 17:26 (Toradol) 17:06 Lorazepam 1 mg ONCE ONCE 08/13/18 DC 08/13/18 (Ativan) IV 17:30 08/13/18 17:26 17:31 Procedures/MDM LABS & DIAGNOSTIC IMAGING: ROCEDURE: CT Brain without contrast. CLINICAL INDICATION: Patient experiencing a headache. TECHNIQUE: A CT of the brain was performed from the skull base through the vertex without IV contrast. Multiplanar reformatted images were made. Images were reviewed on a PACS workstation. The CTDIvol is 38.8 mGy and the DLP is 634 mGycm. DICOM images are available. One or more of the following dose reduction techniques were utilized: 1.) Automated exposure control 2.) Adjustment of the mA +/- kV according to patient's size 3.) Use of iterative reconstruction technique. COMPARISON: 10/20/2017 FINDINGS: Brain: No acute intracranial findings. No mass, hemorrhage, or evidence of acute infarct. There is mild parenchymal volume loss. Mild periventricular and subcortical white matter hypodensities are seen, nonspecific, likely related to chronic small vessel ischemic disease. The ventricles are otherwise normal in size and configuration. Intracranial atherosclerotic calcifications are noted. Bones: The skull base and calvarium are normal in appearance. Orbits: Unremarkable Soft tissues: Unremarkable Paranasal sinuses: There is a small amount of fluid in the right sphenoid sinus, which appears unchanged compared to prior CT 10/20/2017. IMPRESSION: No acute intracranial findings. Mild chronic small vessel ischemic disease. PROCEDURE: CT Sinuses. CLINICAL INDICATION: Headache TECHNIQUE: CT of the sinuses was performed without contrast. CTDIvol is 24 mGy and the DLP is 433 mGycm. DICOM images are available. One or more of the following dose reduction techniques were utilized: 1.) Automated exposure control 2.) Adjustment of the mA +/- kV according to patient's size 3.) Use of iterative reconstruction technique. COMPARISON: Head CT 10/20/2017 FINDINGS: Paranasal sinuses: Mild bilateral maxillary sinus mucosal thickening is noted. Small amount of layering fluid is seen in the right sphenoid sinus, which appears unchanged compared to prior CT 10/20/2017. The right frontal sinus is hypoplastic. Remaining paranasal sinuses are clear. The ostiomeatal units are patent. The frontal and sphenoethmoidal recesses are clear as well. The nasal septum is mildly deviated to the right. Soft tissues: Unremarkable. Visualized brain and skull: Unremarkable IMPRESSION: Mild bilateral maxillary sinus disease. Small amount of fluid in the right sphenoid sinus, which appears unchanged compared to prior head CT 10/20/2017. ED COURSE: The patient was given IV fluids, Zofran, Compazine, Toradol, Ativan The medication was well tolerated and the patient had market improvement in symptoms. The patient remained stable throughout ED course. MEDICAL DECISION MAKIN-year-old very anxious appearing female presents with continued headache. She was seen here 2 days ago for same symptoms and started on antibiotics for presumed sinusitis. Patient presented again today for continued headache. CT of the head was unremarkable. CT confirms sinusitis. Patient felt much better after IV fluids Zofran, Compazine, Toradol and Ativan. Patient was encouraged to finish her entire course of antibiotics and steroids. I will also add a prescription for hydroxyzine to help with her anxiety at nighttime. She has no fever here, her vital signs are normal. I have low suspicion for meningitis, orbital or periorbital cellulitis. Patient is otherwise stable condition can be discharged home with strict return precautions. Recommended PCP follow-up in 1 week. PRESCRIPTIONS: Hydroxyzine, continue current medications. SPECIALIST FOLLOW UP RECOMMENDED: None Patient has been advised to follow up with primary care in 1-2 days. Departure Diagnosis: Primary Impression: Sinusitis Sinusitis location: unspecified location Chronicity: acute Recurrence: non-recurrent Qualified Codes: J01.90 - Acute sinusitis, unspecified Additional Impression: Anxiety Condition: Stable Patient Instructions: Your Body's Response to Anxiety, Sinusitis, Abx Tx Referrals: COMM[facility]ITY [facility] YOU HAVE RECEIVED A MEDICAL SCREENING EXAM AND THE RESULTS INDICATE THAT YOU DO NOT HAVE A CONDITION THAT REQUIRES URGENT TREATMENT IN THE EMERGENCY DEPARTMENT. FURTHER EVALUATION AND TREATMENT OF YOUR CONDITION CAN WAIT UNTIL YOU ARE SEEN IN YOUR DOCTORS OFFICE WITHIN THE NEXT 1-2 DAYS. IT IS YOUR RESPONSIBILITY TO MAKE AN APPOINTMENT FOR FOLOW-UP CARE. IF YOU HAVE A PRIMARY DOCTOR --you should call your primary doctor and schedule an appointment IF YOU DO NOT HAVE A PRIMARY DOCTOR YOU CAN CALL OUR PHYSICIAN REFERRAL HOTLINE AT IF YOU CAN NOT AFFORD TO SEE A PHYSICIAN YOU CAN CHOSE FROM THE FOLLOWING [facility] [address] [facility]. [facility] [address] [facility]. [facility] [address] [facility] [address] [facility] [address] [facility]. [facility] [address] [facility] [facility] YOU HAVE RECEIVED A MEDICAL SCREENING EXAM AND THE RESULTS INDICATE THAT YOU DO NOT HAVE A CONDITION THAT REQUIRES URGENT TREATMENT IN THE EMERGENCY DEPARTMENT. FURTHER EVALUATION AND TREATMENT OF YOUR CONDITION CAN WAIT UNTIL YOU ARE SEEN IN YOUR DOCTORS OFFICE WITHIN THE NEXT 1-2 DAYS. IT IS YOUR RESPONSIBILITY TO MAKE AN APPOINTMENT FOR FOLOW-UP CARE. IF YOU HAVE A PRIMARY DOCTOR --you should call your primary doctor and schedule and appointment IF YOU DO NOT HAVE A PRIMARY DOCTOR YOU CAN CALL OUR PHYSICIAN REFERRAL HOTLINE AT . IF YOU CAN NOT AFFORD TO SEE A PHYSICIAN YOU CAN CHOSE FROM THE FOLLOWING [facility] INSTITUTIONS: [facility] [address] [place] [address] [facility] [address] [place] [address] [facility] [address] [place] [address] Additional Instructions: You must continue taking the antibiotics you are currently on. Take all the medications. He can take ibuprofen for any additional pain. I am also prescribing hydroxyzine which she can use at nighttime for any antianxiety. Return here for any new or worsening symptoms. Paciente aconseja volver a Departamento de urgencias inmediatamente para sntomas nuevos o que empeoran . Paciente aconseja posteriores con el PCP en 1-2 bacon. Si el paciente no tiene ninguna de atencin primaria pueden seguir con [facility] [address] [place] [address] [address] WILLY BRADY PA-C Aug 13, 2018 18:50
== END 2018-08-13 18:18 | disposition home or self-care (01) ==
LOC: FTE 16:32
DX: J01.90 Acute sinusitis, unspecified (principal); F41.9 Anxiety disorder, unspecified
CPT/HCPCS: 70450; 70486; 96361; 96374; 96375; 99285; J0780; J1885; J2060; J2405; J7030